=== PATIENT | male | born 1950 | race Caucasian/White ===

== ENCOUNTER → 2020-03-16 | Outpatient (CLI) | payer OTHER, BC | LOC: SJCVC 13:32 | PROVIDERS: ATTEND Internal Medicine Cardiovascular Disease | DX: R94.31 Abnormal electrocardiogram [ECG] [EKG] (principal); I48.92 Unspecified atrial flutter; I45.2 Bifascicular block; I48.19 Other persistent atrial fibrillation; R00.2 Palpitations; I48.3 Typical atrial flutter; I25.10 Atherosclerotic heart disease of native coronary artery without angina pectoris; E66.9 Obesity, unspecified; J44.9 Chronic obstructive pulmonary disease, unspecified; E03.9 Hypothyroidism, unspecified; E78.5 Hyperlipidemia, unspecified; I10 Essential (primary) hypertension; G47.33 Obstructive sleep apnea (adult) (pediatric); M10.9 Gout, unspecified; E55.9 Vitamin D deficiency, unspecified; Z68.31 Body mass index [BMI] 31.0-31.9, adult; Z79.82 Long term (current) use of aspirin; Z79.899 Other long term (current) drug therapy; Z87.891 Personal history of nicotine dependence ==

== ENCOUNTER → 2020-06-29 | Outpatient (CLI) | payer OTHER, BC | LOC: SJCVC 14:49 | PROVIDERS: ATTEND Internal Medicine Cardiovascular Disease | DX: I48.3 Typical atrial flutter (principal); I48.0 Paroxysmal atrial fibrillation; I25.10 Atherosclerotic heart disease of native coronary artery without angina pectoris; J44.9 Chronic obstructive pulmonary disease, unspecified; G47.33 Obstructive sleep apnea (adult) (pediatric); E05.90 Thyrotoxicosis, unspecified without thyrotoxic crisis or storm; E78.5 Hyperlipidemia, unspecified; I10 Essential (primary) hypertension; Z88.2 Allergy status to sulfonamides; Z79.82 Long term (current) use of aspirin; Z79.899 Other long term (current) drug therapy; Z95.828 Presence of other vascular implants and grafts; Z87.891 Personal history of nicotine dependence ==

== ENCOUNTER → 2020-09-06 | Outpatient (CLI) | payer OTHER, BC ==
[~2020-09-06] MED LIST: ADVAIR 250-501 EACH INH; ALLOPURINOL 10100 M3 PO; CENTRUM SILVER1 EAC4 PO; CHILDREN'S ASPI81 M1 PO; CRESTOR20 MG PO; DILTIAZEM ER180 M1 PO; ELIQUIS5 MG PO; GLUCOSAMINE CH1 EAC4 PO; IPRAT-ALBUT 0.5-3 ML INH; LISINOPRIL20 MG PO; MAGNESIUM250 M1 PO; POTASSIUM99 M1 PO; PROAIR HFA8.5 GM INH; SILDENAFIL CIT100 MG PO; SUPER THERAVIT1 EACH PO; TURMERIC500 M2 PO; VITAMIN D31250 MC1 PO; ZINC50 MG PO
[2020-09-06 09:50] LABS: ABSOLUTE NEUTROPHILS 5.6 thou/uL (1.4-8.2); EOSINOPHILS 3.4 % (0.0-3.0); HEMOGLOBIN 15.2 gm/dL (14.0-18.0); MCH 32.7 pg (26.0-34.0); MCHC 32.9 g/dL (28.0-37.0); MCV 99.2 fL (80.0-100.0); MONOCYTES 6.6 % (1.0-8.0); PLATELET COUNT 184 thou/uL (150-400); RBC 4.64 mil/uL (4.50-6.00); RDW 14.3 % (10.5-14.5); WBC 8.3 thou/uL (4.0-11.0)
[2020-09-06 10:02] LABS: ALBUMIN 3.9 g/dL (3.4-5.0); POTASSIUM 4.3 mmol/L (3.5-5.1); TOTAL BILIRUBIN 1.1 mg/dL (0.2-1.0)
== END ==
LOC: CAT 09:12
PROVIDERS: ATTEND Internal Medicine Cardiovascular Disease
DX: Z01.818 Encounter for other preprocedural examination (principal); I70.0 Atherosclerosis of aorta; I25.10 Atherosclerotic heart disease of native coronary artery without angina pectoris; I48.91 Unspecified atrial fibrillation; Z90.49 Acquired absence of other specified parts of digestive tract

== ENCOUNTER 2020-09-08 06:31 | Observation (INO) | payer OTHER, BC ==
[~2020-09-08] VITALS: Ht 170.2 cm; Wt 85.7 kg
--- NOTE | ~2020-09-08 | P ---
[facility] [place] [address] PROCEDURE REPORT Name: BARBARA MARTÍNEZ Room #: 207-P [facility] M.R.#: [id number] Admission: 09/08/20 Attend Phys: Mao Islas MD Discharge: Date of : 52 Report #: [id number] THIS REPORT FOR: cc: FAM - No family physician/PCP FAM - No family physician/PCP Mao Islas MD ~ DOC #: [id number] Mao Islas MD DATE OF SERVICE: 09/08/2020 PREOPERATIVE DIAGNOSES: 1. Atrial fibrillation. 2. Atrial flutter. POSTOPERATIVE DIAGNOSES: 1. Atrial fibrillation. 2. Atrial flutter. PROCEDURES PERFORMED: 1. Atrial fibrillation ablation -- CPT code 55229. 2. 3D mapping -- CPT code 80687. 3. Intracardiac echo -- CPT code 87643. 4. Second pathway ablation -- CPT code 79163. ANESTHESIA: The patient underwent general anesthesia with no anesthesia related complications. INDICATIONS: The patient underwent informed consent. We discussed the details of the procedure including the risks, which include but not limited to bleeding, vascular damage, stroke, SD, cardiac perforation. He understood these risks and is willing to proceed. DESCRIPTION OF PROCEDURE: The patient was brought to the EP laboratory in fasting and sedated state, prepped and draped in a sterile fashion. I obtained access in the right femoral vein x 3, placing a 8, 9 and 7-Setswana short sheath. Under fluoroscopy, I placed a decapolar catheter easily in the coronary sinus for left atrial pacing and recording. ICE catheter was placed in the right atrium and a 3D geometry was created using [employer]. This was merged with the cardiac CT scan. The patient had two left and two right pulmonary veins. Next, the patient was systemically heparinized. Transseptal was performed using an SL1 sheath and a Clarks needle. This was straightforward and I exchanged the SL1 sheath for the CryoCath sheath and placed a Lasso catheter in the left atrium and created a detailed 3D geometry of the left atrium. At baseline, the patient was in atrial flutter with an atrial cycle length of 260 milliseconds, proximal to distal activation on the CS and negative sawtooth flutter waves in the inferior leads. This was consistent with cavotricuspid isthmus-dependent [facility] [address] [place] [address] PROCEDURE REPORT Name: BARBARA MARTÍNEZ J Room #: 207-P [facility] Jesus Ferraro#: [id number] Admission: 09/08/20 Attend Phys: Mao Islas MD Discharge: Date of : 52 Report #: [id number] flutter. The ventricular cycle length was 760 milliseconds, QRS duration was 150 milliseconds and the QT interval was 420 milliseconds. Next, I started by isolating the left superior pulmonary vein. This vein underwent a 4-minute followed by 3-minute freeze and appeared to isolated during the first freeze. Left inferior pulmonary vein underwent a 270 second freeze and isolated at 88 seconds. The right superior pulmonary vein underwent a 130 seconds and 120 second freezes. Came off early due to cold temperatures, but there was never any phrenic nerve compromise. After these two freezes, the vein was isolated. The right inferior pulmonary vein underwent a 4-minute freeze and isolated at 65 seconds. Next, a repeat voltage map of the left atrium was created demonstrating isolation of all 4 pulmonary veins. Atrial flutter ablation The patient was prepped for right-sided atrial flutter ablation. Using an 8 mm ablation catheter I created a 3D geometry and activation map and this clearly showed counterclockwise cavotricuspid isthmus-dependent flutter. Next, ablation was performed at 70 pillai and 60 degrees via a ramp sheath. Of note, I did measure an HV interval of 52 milliseconds. Ablation was performed and there was termination on the distal aspect of the isthmus. Post-ablation, there was a transisthmus conduction time of 160 milliseconds with an activation sequence consistent with bidirectional block. As such, the procedure was concluded. There was no evidence of pericardial effusion. The patient received systemic protamine and all catheters and sheaths were pulled and hemostasis obtained. The patient awoke neurologically and hemodynamically intact. No complications. No significant bleeding. CONCLUSION: 1. Successful atrial fibrillation ablation with isolation of the pulmonary veins. 2. Successful atrial flutter ablation with evidence of bidirectional block. Mao Islas MD [facility] By: [id number] Mao Islas MD /nt
[2020-09-08 07:23] VITALS: BP 133/82
[2020-09-08 07:35] LABS: ABSOLUTE NEUTROPHILS 6.6 thou/uL (1.4-8.2); BASOPHILS 0.6 % (0.0-2.0); EOSINOPHILS 4.2 % (0.0-3.0); HEMATOCRIT 49.1 % (42.0-52.0); HEMOGLOBIN 16.5 gm/dL (14.0-18.0); LYMPHOCYTES 19.3 % (24.0-44.0); MCH 32.9 pg (26.0-34.0); MCHC 33.5 g/dL (28.0-37.0); MCV 98.1 fL (80.0-100.0); MONOCYTES 5.6 % (1.0-8.0); PLATELET COUNT 200 thou/uL (150-400); POLYS 70.3 % (36.0-66.0); RDW 14.4 % (10.5-14.5); WBC 9.3 thou/uL (4.0-11.0)
[2020-09-08] MEDS ORDERED: ELIQUIS5 MG PO (07:38)
[2020-09-08] MEDS ORDERED: PROAIR HFA8.5 GM INH (07:38)
[2020-09-08] MEDS ORDERED: ALLOPURINOL 10100 M3 PO (07:38)
[2020-09-08] MEDS ORDERED: CHILDREN'S ASPI81 M1 PO (07:39)
[2020-09-08 07:40] LABS: CALCIUM 9.1 mg/dL (8.5-10.1); POTASSIUM 4.2 mmol/L (3.5-5.1)
[2020-09-08] MEDS ORDERED: SUPER THERAVIT1 EACH PO (07:40)
[2020-09-08] MEDS ORDERED: ADVAIR 250-501 EACH INH (07:42)
[2020-09-08] MEDS ORDERED: DILTIAZEM ER180 M1 PO (07:42)
[2020-09-08] MEDS ORDERED: VITAMIN D31250 MC1 PO (07:42)
[2020-09-08] MEDS ORDERED: GLUCOSAMINE CH1 EAC4 PO (07:43)
[2020-09-08] MEDS ORDERED: IPRAT-ALBUT 0.5-3 ML INH (07:45)
[2020-09-08] MEDS ORDERED: LISINOPRIL20 MG PO (07:45)
[2020-09-08 07:46] LABS: ALBUMIN 4.2 g/dL (3.4-5.0); TOTAL BILIRUBIN 1.1 mg/dL (0.2-1.0); TOTAL PROTEIN 7.4 g/dL (6.4-8.2)
[2020-09-08] MEDS ORDERED: MAGNESIUM250 M1 PO (07:46)
[2020-09-08] MEDS ORDERED: CENTRUM SILVER1 EAC4 PO (07:46)
[2020-09-08] MEDS ORDERED: CRESTOR20 MG PO (07:48)
[2020-09-08] MEDS ORDERED: POTASSIUM99 M1 PO (07:48)
[2020-09-08] MEDS ORDERED: SILDENAFIL CIT100 MG PO (07:51)
[2020-09-08] MEDS ORDERED: TURMERIC500 M2 PO (07:51)
[2020-09-08] MEDS ORDERED: ZINC50 MG PO (07:52)
[2020-09-08 07:54] LABS: APTT 27.9 Seconds (24.5-32.8); INR 1.03; PROTIME 11.2 Seconds (10.5-12.1)
[2020-09-08 14:15] VITALS: BP 145/94
--- NOTE | 2020-09-08 17:19 | EKG ---
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
[2020-09-08 19:18] VITALS: BP 140/90
[2020-09-08 23:23] VITALS: BP 138/82
[2020-09-09 04:00] VITALS: BP 133/82
[2020-09-09 08:00] VITALS: BP 136/99
[2020-09-09] MEDS ORDERED: MULTAQ 400 MG400 MG PO (08:35)
--- NOTE | 2020-09-09 09:53 | NUR ---
PATIENT DID NOT WANT TO TAKE MORNING MEDICATIONS HERE AT THE HOSPITAL HE WAS TO DISCHARGE AT 0930. PATIENT DID VERBALIZE HE WOULD TAKE MEDICATIONS SOON HE GOT HOME PRESCRIGED. R GROIN SITE INTACT, NO COMPLICATIONS, NO DISCOLORATION. IV ACCESS DISCONTINED.
== END 2020-09-09 10:08 | disposition home or self-care (01) ==
LOC: CATH 06:31 → 2N 12:36
PROVIDERS: ADMIT Internal Medicine Cardiovascular Disease; ATTEND Internal Medicine Cardiovascular Disease
DX: I48.91 Unspecified atrial fibrillation (principal); I48.92 Unspecified atrial flutter; I25.10 Atherosclerotic heart disease of native coronary artery without angina pectoris; J44.9 Chronic obstructive pulmonary disease, unspecified; E66.9 Obesity, unspecified; E78.5 Hyperlipidemia, unspecified; E05.90 Thyrotoxicosis, unspecified without thyrotoxic crisis or storm; I10 Essential (primary) hypertension; G47.33 Obstructive sleep apnea (adult) (pediatric); I45.2 Bifascicular block; Z79.82 Long term (current) use of aspirin; Z79.899 Other long term (current) drug therapy; Z88.2 Allergy status to sulfonamides; Z68.31 Body mass index [BMI] 31.0-31.9, adult; Z91.040 Latex allergy status
CPT/HCPCS: 62110; 62900; 65020; 70005

== ENCOUNTER → 2020-09-26 | Outpatient (CLI) | payer OTHER, BC ==
[~2020-09-26] MED LIST changes: +MULTAQ 400 MG400 MG PO
== END ==
LOC: SJCVCIMAG 09:30
PROVIDERS: ATTEND Internal Medicine Cardiovascular Disease
DX: R94.31 Abnormal electrocardiogram [ECG] [EKG] (principal); I45.10 Unspecified right bundle-branch block; I42.0 Dilated cardiomyopathy; I48.92 Unspecified atrial flutter; I48.0 Paroxysmal atrial fibrillation; I48.3 Typical atrial flutter; I25.10 Atherosclerotic heart disease of native coronary artery without angina pectoris; J44.9 Chronic obstructive pulmonary disease, unspecified; E66.9 Obesity, unspecified; E03.9 Hypothyroidism, unspecified; E78.5 Hyperlipidemia, unspecified; G47.33 Obstructive sleep apnea (adult) (pediatric); G43.909 Migraine, unspecified, not intractable, without status migrainosus; E55.9 Vitamin D deficiency, unspecified; Z79.899 Other long term (current) drug therapy; Z79.82 Long term (current) use of aspirin; Z88.2 Allergy status to sulfonamides; Z87.891 Personal history of nicotine dependence; Z72.89 Other problems related to lifestyle

== ENCOUNTER → 2020-12-12 | Outpatient (CLI) | payer OTHER, BC | LOC: SJCVC 10:07 | PROVIDERS: ATTEND Internal Medicine Cardiovascular Disease | DX: R94.31 Abnormal electrocardiogram [ECG] [EKG] (principal); I45.2 Bifascicular block; I25.5 Ischemic cardiomyopathy; I48.0 Paroxysmal atrial fibrillation; I48.3 Typical atrial flutter; I25.10 Atherosclerotic heart disease of native coronary artery without angina pectoris; J44.9 Chronic obstructive pulmonary disease, unspecified; E66.9 Obesity, unspecified; G47.33 Obstructive sleep apnea (adult) (pediatric); E03.9 Hypothyroidism, unspecified; M10.9 Gout, unspecified; Z79.899 Other long term (current) drug therapy; Z79.82 Long term (current) use of aspirin ==

== ENCOUNTER → 2021-01-10 | Outpatient (CLI) | payer OTHER, BC | LOC: SJCVCIMAG 01-01 08:40 | PROVIDERS: ATTEND Internal Medicine Cardiovascular Disease | DX: I35.1 Nonrheumatic aortic (valve) insufficiency (principal); I42.9 Cardiomyopathy, unspecified ==